=== PATIENT | female | born 1955 | race Caucasian/White ===

== ENCOUNTER 2017-10-08 12:45 | Emergency (ER) | payer OTHER ==
[~2017-10-08] VITALS: Ht 172.7 cm; Wt 90.7 kg
[~2017-10-08 12:45] MED LIST: CALCIUM 500 +1 EAC4 PO; CLONAZEPAM 0.50.5 M1 PO; ENTOCORT EC 3 MG3 MG PO; HYDROCODONE-AP1 EAC6 PO; LATUDA120 MG PO; LISINOPRIL10 MG PO; MAXZIDE 75-501 EACH PO; METHADONE HCL 110 M1 PO; NEURONTIN800 MG PO; NUEDEXTA 20-101 EACH PO
[2017-10-08] MEDS ORDERED: LYRICA 75 MG CA75 MG PO (12:55)
[2017-10-08 13:11] LABS: ABSOLUTE NEUTROPHILS 5.9 thou/uL (1.4-8.2); BASOPHILS 0.5 % (0.0-2.0); EOSINOPHILS 0.3 % (0.0-3.0); HEMATOCRIT 47.2 % (37.0-47.0); HEMOGLOBIN 15.6 gm/dL (12.0-15.0); LYMPHOCYTES 20.1 % (24.0-44.0); MCH 31.3 pg (26.0-34.0); MONOCYTES 6.6 % (1.0-8.0); PLATELET COUNT 321 thou/uL (150-400); POLYS 72.5 % (36.0-66.0); RBC 4.97 mil/uL (4.20-5.00); RDW 13.3 % (10.5-14.5); WBC 8.1 thou/uL (4.0-11.0)
[2017-10-08 13:24] LABS: ANION GAP 15 mmol/L (7-16); BUN 9 mg/dL (7-18); CALCIUM 10.2 mg/dL (8.5-10.1); CHLORIDE 105 mmol/L (98-107); CO2 22 mmol/L (21-32); GLUCOSE 151 mg/dL (74-106); POTASSIUM 3.9 mmol/L (3.5-5.1); SODIUM 142 mmol/L (136-145)
[2017-10-08 13:28] LABS: ALBUMIN 4.2 g/dL (3.4-5.0); DIRECT BILIRUBIN < 0.1 mg/dL (<0.1-0.3); SALICYLATE < 2.8 mg/dL (2.8-20.0); SGOT 24 U/L (15-37); SGPT 36 U/L (30-65); TOTAL BILIRUBIN 0.2 mg/dL (<0.1-1.0); TOTAL PROTEIN 8.1 g/dL (6.4-8.2)
[2017-10-08 15:26] LABS: AMP/METHAMP Negative (Negative); BARBITURATES Negative (Negative); BENZODIAZEPINES Negative (Negative); COCAINE Negative (Negative); METHADONE Negative (Negative); OPIATES Negative (Negative); PCP Negative (Negative)
[2017-10-08 19:30] VITALS: BP 142/71
== END 2017-10-08 19:48 ==
LOC: ER 12:45
PROVIDERS: Emergency Medicine
DX: R45.851 Suicidal ideations (principal); I10 Essential (primary) hypertension; F41.9 Anxiety disorder, unspecified; F31.9 Bipolar disorder, unspecified; Z88.1 Allergy status to other antibiotic agents; Z88.8 Allergy status to other drugs, medicaments and biological substances; Z88.6 Allergy status to analgesic agent

== ENCOUNTER 2018-03-12 18:57 | Inpatient (IN) | payer OTHER ==
[~2018-03-12] VITALS: Ht 165.1 cm; Wt 101.7 kg
--- NOTE | ~2018-03-12 | EEG ---
[facility] [address] [place] [address] ELECTROENCEPHALOGRAM Name: ARBEN COLLINS Room #: 247-P ADM IN M.R.#: [id number] Admission: 03/12/18 Attend Phys: Rudy Corea Discharge: Date of : 51 Report #: [id number] THIS REPORT FOR: //name// CC: FAM unknown Mitullos Dunncameron Jose Caponean DATE OF SERVICE: 03/14/2018 This patient is being evaluated for altered mental status and seizure. EEG was done by placing the electrode by standard 10-20 system of electrode placement. Both referential and sequential montages were used for recording. Background activity in this patient's EEG does go up to about 8 Hz and 30 microvolt. It is a symmetrical activity. It is difficult to tell when the patient is awake or when the patient is asleep. Photic stimulation is unremarkable. Throughout the record, no active epileptiform activity was noticed. IMPRESSION: This patient's EEG does not demonstrate any active epileptiform activity. It is somewhat intermixed with slowing on both sides. That is a nonspecific abnormality, which can occur with encephalopathy, effect of psychotropic medication, etc. <ELECTRONICALLY SIGNED> By: Ganga Lujan MD 03/17/18 0837 190 40 Ganga Lujan MD /nt
--- NOTE | ~2018-03-12 | EKG ---
[place] [address] [facility] [place] [address] ELECTROCARDIOGRAM REPORT Name: DENNISARBEN DAVID Room #: 363-P ADM IN M.R.#: [id number] Admission: 03/12/18 Attend Phys: Rudy Headley Discharge: Date of : 51 Report #: [id number] THIS REPORT FOR: //name// [facility] ED Test Date: 2018-03-12 Test Time: 19:15:55 Pat Name: ARBEN COLLINS Department: Room: 363 Gender: F Coffee Taster: mya : 1955 Requested By: Jenni Hager Order Number: [id number] MD: Ruy Stephens Measurements Intervals [place] Rate: 129 P: 59 [place]: 147 QRS: 58 QRSD: 97 T: 249 QT: 303 QTc: 444 Interpretive Statements Sinus tachycardia Nonspecific ST and T wave abnormality Compared to ECG 02/21/2016 16:09:49 ST and T wave abnormality is now present Electronically Signed On 03-13-2018 8:21:06 CDT by Ruy Stephens [email or web address] <ELECTRONICALLY SIGNED> By: Ruy Stephens MD, [facility] 03/13/18820 14 14 Ruy Stephens MD, [facility] /EPI
--- NOTE | ~2018-03-12 | O ---
[facility] [place] [address] OPERATIVE REPORT Name: ARBEN COLLINS Room #: 222-P [facility] IN M.R.#: [id number] Admission: 03/12/18 Attend Phys: Rudy Headley Discharge: Date of : 51 Report #: [id number] THIS REPORT FOR: //name// CC: FAM unknown Rudy Lovett DATE OF SERVICE: 03/24/2018 SURGEON: Chetan Kendall MD. POWER PLANT MANAGER: JAY Clinton. PREOPERATIVE DIAGNOSES: 1. Symptomatic right anteromedial thigh hematoma. 2. Seizure disorder. 3. Chronic pain syndrome. 4. Bipolar mood disorder. 5. Type 2 diabetes mellitus. 6. Hypertension. POSTOPERATIVE DIAGNOSES: 1. Symptomatic right anteromedial thigh hematoma. 2. Seizure disorder. 3. Chronic pain syndrome. 4. Bipolar mood disorder. 5. Type 2 diabetes mellitus. 6. Hypertension. PROCEDURE: Incision, drainage and evacuation of right anteromedial thigh hematoma. ANESTHESIA: General laryngeal mask anesthesia and local anesthetic. ESTIMATED BLOOD LOSS: 5 mL (200 mL of hematoma evacuated). SPECIMEN: None. COMPLICATIONS: None appreciated. INDICATIONS FOR PROCEDURE: This is a 63-year-old female patient with a history of seizure disorder, who developed a right anterior medial thigh hematoma that she sustained while undergoing a seizure. She has been symptomatic with this and underwent a Doppler showing this to be a 7 x 7 x 2 cm hematoma. The patient presents now for incision, drainage, and evacuation of the hematoma. [facility] [place] [address] OPERATIVE REPORT Name: ARBEN COLLINS Room #: 222-P ADM IN M.R.#: [id number] Admission: 03/12/18 Attend Phys: Rudy Headley Discharge: Date of : 51 Report #: [id number] DESCRIPTION OF PROCEDURE IN DETAIL: After the risks, benefits and expectations of the operation were discussed in detail with the patient, informed consent was obtained. The patient was identified in the preoperative holding area. She was given IV antibiotics as documented in the chart in line with SCIP metrics. The patient was then taken to the Operating Room and she was placed in the supine position. SCDs were placed on the patient's right lower extremity and pneumatic compression was initiated (the patient has undergone a left ogueu-gkb-qfyj amputation). The patient was then given IV sedation and a laryngeal mask was placed without difficulty. Her right leg was prepped and draped in the standard sterile fashion. A time-out was performed to identify the correct patient and procedure. Local anesthetic was infiltrated into the skin and subcutaneous tissue and the planned incision following the skin lines. A sharp #15-blade scalpel was used to make the incision. Electrocautery was used to dissect through subcutaneous tissue into the hematoma. The hematoma was then suctioned from the cavity. Blunt digital dissection was then utilized to free any remaining hematoma within the tissue. There was no active hemorrhage seen and no need for cauterization. The hematoma cavity was copiously irrigated. Any bleeding points in the subcutaneous tissue were made hemostatic with electrocautery. After ensuring final hemostasis, the wound was closed in layers with a running 3-0 Vicryl suture to approximate the subdermal tissue. A running 4-0 Monocryl subcuticular suture and Dermabond were used to close the skin incision. After the Dermabond dried, an ABD pad and Frandy wrap were used to dress the wound. The patient tolerated the procedure well. She was awakened and the laryngeal mask was removed without difficulty and the patient was taken to the recovery room in stable condition with no apparent intraoperative complications. <ELECTRONICALLY SIGNED> By: Chetan Kendall MD, FACS 03/24/18 1331 0819 1032 Chetan Kendall MD, FACS /nt
--- NOTE | ~2018-03-12 | EEG ---
[facility] [place] [address] ELECTROENCEPHALOGRAM Name: ARBEN COLLINS Room #: 247-P ADM IN M.R.#: [id number] Admission: 03/12/18 Attend Phys: Rudy Corea Discharge: Date of : 51 Report #: [id number] THIS REPORT FOR: //name// CC: FAM unknown Rudy Dunnlidara Jose Lovett DATE OF SERVICE: 03/13/2018 This patient is being evaluated for altered mental status as well as the possibility of seizure. The patient is on multiple medications including Ativan. The EEG was done by placing the electrodes by standard 10-20 system of electrode placement. Both referential and sequential montages were used for recording. This patient's background activity appeared to be about 8 Hz and 30 microvolt. In general, it is slow activity and it is intermixed with theta range slowing on both sides. On occasion, the EEG becomes even slower and appeared to be showing some sleep spindles and vertex sharp waves on both sides, which were symmetrical. Photic stimulation is unremarkable. The patient appeared to have had an episode of spike and slow wave activity. The EEG was discussed with the predictive maintenance technician and it does not look like that this patient had any movement during that time. The epileptiform activity is somewhat more prominent on the left side as compared to the right side, but is present on both sides. It does not appear to be focal and involving the whole left cerebral hemisphere and in fact appeared to be less prominent in the left frontal area, making the possibility of triphasic waves unlikely. IMPRESSION: This is an abnormal electroencephalogram because it is disorganized and poorly formed. That is a nonspecific abnormality, which can occur with encephalopathy, effect of psychotropic medication, dementia, etc. The patient's electroencephalogram does appear to be demonstrating an episode of seizure activity, which is somewhat more prominent on the left cerebral hemisphere than the right cerebral hemisphere, but is well reflected on both sides and the difference between both sides is minor. Thank you very much for this referral and if you have any question, please feel free to contact me. <ELECTRONICALLY SIGNED> By: Ganga Lujan MD 03/17/18 0837 1201 1211 Ganga Lujan MD /nt
--- NOTE | ~2018-03-12 | HC ---
[facility] [place] [address] CONSULTATION Name: ARBEN COLLINS Room #: 247-P ADM IN M.R.#: [id number] Admission: 03/12/18 Attend Phys: Rudy Headley Discharge: Date of : 51 Report #: [id number] THIS REPORT FOR: //name// CC: FAM unknown Mitullos Kayode Lovett ADDENDUM PAST MEDICAL HISTORY: Left vnxpm-epf-qwfz amputation, hypertension and anxiety disorder with bipolar disorder. ALLERGIES: CEFAZOLIN, CLINDAMYCIN, LITHIUM, MORPHINE, SERZONE, NONSTEROIDAL ANTI-INFLAMMATORIES, PROCHLORPERAZINE, SEROQUEL, ULTRAM, TRAZODONE and VANCOMYCIN. MEDICATIONS: Prior to admission included vitamin D and calcium, Entocort, Zestril, dextromethorphan and quinidine. FAMILY HISTORY: Not available. SOCIAL HISTORY: Nonsmoker. No significant alcohol intake. PHYSICAL EXAMINATION: VITAL SIGNS: Afebrile and hemodynamically stable. GENERAL: The patient was lethargic, but once stimulated, arouse and was able to converse and follow commands. She was confused and can give me no history. She did not know where she was at. She did know her name. She had slurred speech. HEENT: Unremarkable. Mouth unremarkable. Dentition in fair repair. No oral lesions. Eyes unremarkable. NECK: Supple. No thyromegaly or mass. No JVD. CHEST: Clear with no adventitial sounds. HEART: Regular, without murmur, gallop or rub. ABDOMEN: Soft and nontender. No hepatosplenomegaly or mass. She had a left AKA stump, was unremarkable. EXTREMITIES: Right lower extremity showed a fairly large to her medial thigh. She had a peripheral IV in place. GENITOURINARY: She had an indwelling Bansal catheter with unremarkable external genitalia. NEUROLOGICAL: Otherwise, nonfocal with normal cranial nerves. Strength was equal bilaterally upper and lower extremities. Deep tendon reflexes intact. LABORATORY STUDIES: Sodium 144, potassium 4.1 and creatinine 1. Liver function test normal. Hemoglobin 15.7; platelet count 316,000 and white count initially 17.8 and now 11.1 with unremarkable differential. Urinalysis unremarkable. RADIOLOGICAL DATA: CT of the head negative. CT of sinuses on that film are [address] [address] CONSULTATION Name: ARBEN COLLINS Room #: 247-P ADM IN M.R.#: [id number] Admission: 03/12/18 Attend Phys: Rudy Headley Discharge: Date of : 51 Report #: [id number] unremarkable. Chest x-ray showed cardiomegaly with no acute pulmonary infiltrates. ET as noted above. IMPRESSION: Acute change in mental status with seizure. Still unclear if this is related to her primary seizure disorder for ischemia. CT scan was unremarkable in that regard. She had leukocytosis, which often is evident after a grand mal seizure. It has improved along with her mental status without antibiotic therapy. I am finding no other area of end-organ infection. She did not appear to have meningitis. I would expect encephalitis to progress and not improve following the seizure episode. The patient has hypertension, which was elevated, now controlled. Anxiety and bipolar disorder. RECOMMENDATIONS: We will continue to observe off antibiotics. Obtain MRI scan. If she should have further deterioration in her mental status or evidence of fever, we would perform a lumbar puncture. We would also do serial CBCs. She will require further monitoring on the medical surgical floor, critical care, telemetry. <ELECTRONICALLY SIGNED> By: Yony Mayberry MD 03/17/18 1102 1723 0105 Yony Mayberry MD /nt
--- NOTE | ~2018-03-12 | EKG ---
[address] [place] [address] ELECTROCARDIOGRAM REPORT Name: ARBEN COLLINS Room #: 247-P ADM IN M.R.#: [id number] Admission: 03/12/18 Attend Phys: Rudy Headley Discharge: Date of : 51 Report #: [id number] THIS REPORT FOR: //name// [facility] Test Date: 2018-03-15 Test Time: 11:13:57 Pat Name: ARBEN COLLINS Department: Room: 247 P Gender: F Feather Shaper: SRINATH : 1955 Requested By: Rudy Headley Order Number: [id number] MD: Riley Bruno Measurements Intervals [place] Rate: 99 P: 56 SD: 138 QRS: 53 QRSD: 94 T: -32 QT: 378 QTc: 486 Interpretive Statements Sinus tachycardia Multiple premature complexes, vent & supraven Nonspecific ST segment abnormalities Compared to ECG 03/12/2018 19:15:55 T-wave abnormality now present ST (T wave) deviation no longer present Electronically Signed On 03-16-2018 11:01:22 CDT by Riley Bruno [email or web address] <ELECTRONICALLY SIGNED> By: Riley Bruno MD 03/16/18 1101 1113 1113 Riley Bruno MD /EPI
--- NOTE | ~2018-03-12 | HC ---
[facility] [place] [address] CONSULTATION Name: ARBEN COLLINS Room #: 247-P ADM IN M.R.#: [id number] Admission: 03/12/18 Attend Phys: Rudy Headley Discharge: Date of : 51 Report #: [id number] THIS REPORT FOR: //name// CC: FAM unknown Rudy Headley Jose Lovett DATE OF SERVICE: 03/14/2018 TYPE OF REPORT: Infectious diseases consultation. REASON FOR CONSULTATION: Evaluate leukocytosis and altered mental status. HISTORY OF PRESENT ILLNESS: The patient was a 63-year old who presents to the Emergency Room with a 1-hour history of altered mental status. She was with her family members and stopped speaking and noticed bizarre behavior with the patient with sit up and fall back repeatedly. EMS was called and brought to the Emergency Room where she suffered a seizure that was witnessed including tremors and incontinence. No predating fever, chills or sweats. No episodes of nausea, vomiting or diarrhea. She has had no rash. No prior history of seizure. Reports no prior trauma. She does have bipolar disorder with no recent change in her medications noted. She was evaluated in the Emergency Room and admitted to the med/surg floor for further observation. She was seen by Neurology who placed her on anti-seizure medication. CT scan of the head showed no intracranial process. EEG did show some background seizure activity. Her initial CBC showed a white count of 17.8. On repeat testing, it went down to 11.1. She has been on no recent antibiotics. REVIEW OF SYSTEMS: The patient was a poor historian, unable to give me much detail of her history. She was still lethargic and confused. A 10-point review of systems was not able to be obtained due to her mental status. DICTATION ENDS ABRUPTLY HERE. <ELECTRONICALLY SIGNED> By: Yony Mayberry MD 03/17/18 1102 1712 0009 Yony Mayberry MD /nt
[~2018-03-12 18:57] MED LIST changes: +LYRICA 75 MG CA75 MG PO
[2018-03-12 19:16] LABS: BASOPHILS 0.4 % (0.0-2.0); EOSINOPHILS 0.4 % (0.0-3.0); HEMATOCRIT 54.7 % (37.0-47.0); HEMOGLOBIN 17.5 gm/dL (12.0-15.0); LYMPHOCYTES 25.8 % (24.0-44.0); MCH 30.6 pg (26.0-34.0); MCV 95.9 fL (80.0-100.0); MONOCYTES 5.8 % (1.0-8.0); PLATELET COUNT 375 thou/uL (150-400); POLYS 67.6 % (36.0-66.0); RBC 5.71 mil/uL (4.20-5.00); RDW 13.9 % (10.5-14.5); WBC 17.8 thou/uL (4.0-11.0)
[2018-03-12 19:25] LABS: ANION GAP 26 mmol/L (7-16); BUN 17 mg/dL (7-18); CALCIUM 10.9 mg/dL (8.5-10.1); CHLORIDE 101 mmol/L (98-107); CO2 16 mmol/L (21-32); CREATININE 1.4 mg/dL (0.6-1.0); GLUCOSE 201 mg/dL (74-106); POTASSIUM 3.4 mmol/L (3.5-5.1); SODIUM 143 mmol/L (136-145)
[2018-03-12 19:33] LABS: ALBUMIN 4.6 g/dL (3.4-5.0); DIRECT BILIRUBIN < 0.1 mg/dL (<0.1-0.3); SGOT 30 U/L (15-37); SGPT 41 U/L (30-65); TOTAL BILIRUBIN 0.3 mg/dL (<0.1-1.0); TOTAL PROTEIN 9.3 g/dL (6.4-8.2)
[2018-03-12 20:07] LABS: URINE BILIRUBIN NEGATIVE (Negative); URINE BLOOD 2+ (Negative); URINE CLARITY CLEAR; URINE COLOR YELLOW; URINE GLUCOSE-RANDOM* NEGATIVE (Negative); URINE KETONES TRACE (Negative); URINE LEUKOCYTES NEGATIVE (Negative); URINE NITRITE NEGATIVE (Negative); URINE PROTEIN (DIPSTICK) 2+ (Negative); URINE SPECIFIC GRAVITY >= 1.030 (1.005-1.035); URINE UROBILINOGEN 0.2 E.U./dl (0.2-1.0)
[2018-03-12 20:14] LABS: AMORPHOUS URATES Few /LPF (None Seen); BACTERIA None Seen /HPF (None Seen); HYALINE CASTS 0-3 Few /LPF (None Seen); SQUAMOUS 0-3 Few /LPF (0-3); URINE RBC 0-2 Rare /HPF (0-2); URINE WBC 0-5 Rare /HPF (0-5)
[2018-03-12 20:15] LABS: AMP/METHAMP Negative (Negative); BARBITURATES Negative (Negative); BENZODIAZEPINES Negative (Negative); COCAINE Negative (Negative); METHADONE Negative (Negative); OPIATES POSITIVE (Negative); PCP Negative (Negative)
[2018-03-12 20:51] VITALS: BP 186/97
[2018-03-12 21:06] VITALS: BP 159/99
[2018-03-12] MEDS ORDERED: ONDANSETRON HCL4 M2 PO (23:14)
[2018-03-12] MEDS ORDERED: SEROQUEL 25 MG25 M1 PO (23:14)
[2018-03-12] MEDS ORDERED: BUPRENORPHINE HC2 MG SUBLING (23:28)
[2018-03-13] VITALS (8 sets, daily range): BP systolic 133–192; BP diastolic 66–119
[2018-03-13 06:33] LABS: ABSOLUTE NEUTROPHILS 8.4 thou/uL (1.4-8.2); BASOPHILS 0.1 % (0.0-2.0); EOSINOPHILS 0.1 % (0.0-3.0); HEMATOCRIT 47.8 % (37.0-47.0); HEMOGLOBIN 15.7 gm/dL (12.0-15.0); LYMPHOCYTES 15.3 % (24.0-44.0); MCH 29.9 pg (26.0-34.0); MCHC 32.9 g/dL (28.0-37.0); MONOCYTES 8.3 % (1.0-8.0); PLATELET COUNT 316 thou/uL (150-400); POLYS 76.2 % (36.0-66.0); RBC 5.26 mil/uL (4.20-5.00); RDW 13.5 % (10.5-14.5); WBC 11.1 thou/uL (4.0-11.0)
[2018-03-13 06:34] LABS: MCV 90.9 fL (80.0-100.0)
[2018-03-13 06:39] LABS: MAGNESIUM 2.5 mg/dL (1.8-2.4); POTASSIUM 3.7 mmol/L (3.5-5.1)
[2018-03-14] VITALS (21 sets, daily range): BP systolic 100–188; BP diastolic 59–93
[2018-03-14 00:06] LABS: GLYCOHEMOGLOBIN (HGB A1C) 5.6 % (4.8-5.6)
[2018-03-14 06:28] LABS: ALBUMIN 3.5 g/dL (3.4-5.0); CALCIUM 8.6 mg/dL (8.5-10.1); PHOSPHORUS 3.3 mg/dL (2.5-4.9); POTASSIUM 4.1 mmol/L (3.5-5.1)
[2018-03-15] VITALS (27 sets, daily range): BP systolic 102–217; BP diastolic 48–166
[2018-03-15 04:56] LABS: ABSOLUTE NEUTROPHILS 3.7 thou/uL (1.4-8.2); BASOPHILS 0.7 % (0.0-2.0); EOSINOPHILS 1.8 % (0.0-3.0); HEMATOCRIT 40.2 % (37.0-47.0); MCH 30.2 pg (26.0-34.0); MCV 91.4 fL (80.0-100.0); MONOCYTES 9.7 % (1.0-8.0); POLYS 51.8 % (36.0-66.0); RBC 4.39 mil/uL (4.20-5.00); WBC 7.1 thou/uL (4.0-11.0)
[2018-03-15 05:04] LABS: HEMOGLOBIN 13.3 gm/dL (12.0-15.0); PLATELET COUNT 234 thou/uL (150-400)
[2018-03-16] VITALS (12 sets, daily range): BP systolic 113–165; BP diastolic 53–98
[2018-03-17 08:00] VITALS: BP 129/72
[2018-03-17 12:00] VITALS: BP 128/68
[2018-03-17 16:00] VITALS: BP 150/90
[2018-03-17 18:00] VITALS: BP 181/79
[2018-03-18 03:06] VITALS: BP 118/53
[2018-03-18 07:55] VITALS: BP 133/59
[2018-03-18 15:38] VITALS: BP 153/64
[2018-03-18 19:23] VITALS: BP 151/58
[2018-03-19 03:53] VITALS: BP 155/75
[2018-03-19 08:24] VITALS: BP 121/58
[2018-03-19 16:52] VITALS: BP 134/61
[2018-03-20 05:22] VITALS: BP 129/62
[2018-03-20 07:37] VITALS: BP 138/61
[2018-03-20] MEDS ORDERED: AUGMENTIN 875-1 EACH PO (15:45)
[2018-03-20 19:58] VITALS: BP 123/73
[2018-03-21 00:35] VITALS: BP 97/76
[2018-03-21 07:55] VITALS: BP 120/64
[2018-03-21 14:54] LABS: PROTIME 10.5 Seconds (9.3-11.4)
[2018-03-21 20:02] VITALS: BP 151/80
[2018-03-22 08:05] VITALS: BP 141/73
[2018-03-22 20:21] VITALS: BP 139/63
[2018-03-23 06:09] VITALS: BP 116/63
[2018-03-23 07:53] VITALS: BP 109/55
[2018-03-23 20:01] VITALS: BP 122/61
[2018-03-24 07:11] VITALS: BP 142/53
[2018-03-24 09:15] VITALS: BP 153/88
[2018-03-24] MEDS ORDERED: NORCO 10-325 T1 EACH PO (10:31)
[2018-03-24] MEDS ORDERED: PROTONIX 20 MG20 M1 PO (10:31)
[2018-03-24] MEDS ORDERED: LISINOPRIL20 MG PO (10:31)
[2018-03-24] MEDS ORDERED: CARDIZEM CD240 MG PO (10:31)
[2018-03-24] MEDS ORDERED: DEPAKOTE500 MG PO (10:31)
[2018-03-24 22:11] VITALS: BP 164/70
[2018-03-25 07:25] VITALS: BP 142/61
[2018-03-25 07:30] LABS: HEMATOCRIT 38.5 % (37.0-47.0); HEMOGLOBIN 12.7 gm/dL (12.0-15.0); MCH 30.3 pg (26.0-34.0); MCV 92.1 fL (80.0-100.0); RBC 4.18 mil/uL (4.20-5.00); RDW 13.8 % (10.5-14.5); WBC 7.3 thou/uL (4.0-11.0)
[2018-03-25 07:45] LABS: ALBUMIN 3.2 g/dL (3.4-5.0); CALCIUM 8.7 mg/dL (8.5-10.1); CREATININE 0.8 mg/dL (0.6-1.0); MAGNESIUM 2.1 mg/dL (1.8-2.4); POTASSIUM 3.8 mmol/L (3.5-5.1); TOTAL BILIRUBIN 0.2 mg/dL (<0.1-1.0); TOTAL PROTEIN 6.6 g/dL (6.4-8.2)
== END 2018-03-25 18:00 | DRG 987 ==
LOC: ER 18:57 → 3W 20:04 → EROBS 20:04 → SICU 20:04 → 3W 20:56 → ICU 03-14 18:25 → 4W 03-17 18:29 → SICU 03-19 16:13
PROVIDERS: Emergency Medicine; Hospitalist; Nurse Practitioner; Nurse Practitioner Family; Specialist; Surgery
PROC: 0J9L0ZZ Drainage of Right Upper Leg Subcutaneous Tissue and Fascia, Open Approach (ICD-10-PCS; principal; 2018-03-24)
DX: G40.909 Epilepsy, unspecified, not intractable, without status epilepticus (principal); J18.9 Pneumonia, unspecified organism; N17.0 Acute kidney failure with tubular necrosis; I67.83 Posterior reversible encephalopathy syndrome; N17.1 Acute kidney failure with acute cortical necrosis; E87.2 Acidosis; R45.851 Suicidal ideations; F11.20 Opioid dependence, uncomplicated; D32.9 Benign neoplasm of meninges, unspecified; E87.6 Hypokalemia; D72.829 Elevated white blood cell count, unspecified; I16.0 Hypertensive urgency; R53.81 Other malaise; G47.00 Insomnia, unspecified; R29.6 Repeated falls; E55.9 Vitamin D deficiency, unspecified; F41.9 Anxiety disorder, unspecified; F31.9 Bipolar disorder, unspecified; G89.4 Chronic pain syndrome; I10 Essential (primary) hypertension; E11.65 Type 2 diabetes mellitus with hyperglycemia; W18.39XA Other fall on same level, initial encounter; Z96.653 Presence of artificial knee joint, bilateral; Z88.6 Allergy status to analgesic agent; Z88.1 Allergy status to other antibiotic agents; Z88.8 Allergy status to other drugs, medicaments and biological substances; Z89.612 Acquired absence of left leg above knee; Z85.118 Personal history of other malignant neoplasm of bronchus and lung; Y93.89 Activity, other specified; Y92.89 Other specified places as the place of occurrence of the external cause; Y99.8 Other external cause status; S70.11XA Contusion of right thigh, initial encounter
CPT/HCPCS: 10047; 10078; 10879; 15002; 50010; 50101; 50386; 50403; 56524; 56526; 62110; 62900; 70005

== ENCOUNTER 2018-12-29 19:30 | Inpatient (IN) | payer OTHER ==
[~2018-12-29] VITALS: Ht 172.7 cm; Wt 91.6 kg
[~2018-12-29 19:30] MED LIST changes: +AUGMENTIN 875-1 EACH PO; +BUPRENORPHINE HC2 MG SUBLING; +CARDIZEM CD240 MG PO; +DEPAKOTE500 MG PO; +LISINOPRIL20 MG PO; +NORCO 10-325 T1 EACH PO; +ONDANSETRON HCL4 M2 PO; +PROTONIX 20 MG20 M1 PO; +SEROQUEL 25 MG25 M1 PO
[2018-12-29 19:31] VITALS: BP 150/75
[2018-12-29 20:01] LABS: URINE BILIRUBIN NEGATIVE (Negative); URINE BLOOD NEGATIVE (Negative); URINE CLARITY CLEAR; URINE COLOR YELLOW; URINE GLUCOSE-RANDOM* NEGATIVE (Negative); URINE KETONES TRACE (Negative); URINE LEUKOCYTES-REFLEX NEGATIVE (Negative); URINE NITRITE-REFLEX NEGATIVE (Negative); URINE PROTEIN (DIPSTICK) TRACE (Negative); URINE SPECIFIC GRAVITY >= 1.030 (1.005-1.035); URINE UROBILINOGEN 0.2 E.U./dl (0.2-1.0)
[2018-12-29 20:04] LABS: HEMATOCRIT 44.5 % (37.0-47.0); MCH 32.3 pg (26.0-34.0); MCHC 33.6 g/dL (28.0-37.0); PLATELET COUNT 291 thou/uL (150-400); RBC 4.64 mil/uL (4.20-5.00); RDW 12.8 % (10.5-14.5); WBC 5.2 thou/uL (4.0-11.0)
[2018-12-29 20:10] LABS: CALCIUM 8.7 mg/dL (8.5-10.1); CREATININE 0.9 mg/dL (0.6-1.0); POTASSIUM 3.6 mmol/L (3.5-5.1)
[2018-12-29 20:29] LABS: ANISOCYTOSIS 1+
[2018-12-30] MEDS ORDERED: ZIPRASIDONE HCL40 MG PO (01:36)
[2018-12-30] MEDS ORDERED: NEURONTIN 300300 M1 PO (01:36)
[2018-12-30] MEDS ORDERED: VISTARIL 25 MG25 M1 PO (01:37)
[2018-12-30] MEDS ORDERED: MELATONIN3 MG PO (01:38)
[2018-12-30] MEDS ORDERED: FIBRICOR35 MG PO (01:40)
[2018-12-30] MEDS ORDERED: REGLAN 5 MG TAB5 MG PO (01:41)
[2018-12-30] MEDS ORDERED: ACIDOPHILUS LA1 EAC1 PO (01:42)
[2018-12-30] MEDS ORDERED: DIGESTIVE PROB250 MG PO (01:43)
[2018-12-30 02:17] VITALS: BP 145/74
[2018-12-30 02:45] VITALS: BP 192/88
[2018-12-30 02:56] LABS: AMP/METHAMP Negative (Negative); BARBITURATES Negative (Negative); BENZODIAZEPINES POSITIVE (Negative); COCAINE Negative (Negative); METHADONE Negative (Negative); OPIATES Negative (Negative); PCP Negative (Negative)
[2018-12-30 04:10] VITALS: BP 152/75
--- NOTE | 2018-12-30 05:35 | NUR ---
PT ARRIVED TO UNIT APPROX 0300, IN STABLE CONDITION. ADMISSION AND ASSESSMENT COMPLETED. PT ABLE TO STATE HER FIRST NAME, BIRTHDAY, KNEW SHE WAS IN THE HOSPITAL BUT UNSURE OF WHERE; ALL OTHER QUESTIONS SHE JUST ANSWERED "I DON'T KNOW." WHEN ASKED SINGLE QUESTIONS, SHE COULD SOMETIMES ANSWER APPROPRIATELY--SUCH WHAT PAIN MED SHE TOOK AND LATER WAS ABLE TO GIVE THE NAME OF THE HOSPITAL; OTHERWISE, SHE WOULD JUST SAY I DON'T KNOW AND REFUSE TO TRY TO ANSWER. IN ISOLATION FOR C.DIFF, ER SENT SAMPLE TO CONFIRM; ALSO IN ISOLATION FOR POSSIBLE MENINGITIS. PT TO HAVE ABD CT TODAY AND IR CONSULTED FOR AN IR-GUIDED LP. SKIN IN GOOD CONDITION. PT C/O SEVERE HEADACHE. DENIES SOB OR NAUSEA. MAINTAINING NPO STATUS. IV FLUIDS INFUSING. NO OTHER CONCERNS, WILL CONTINUE TO MONITOR.
--- NOTE | 2018-12-30 08:00 | EKG ---
[address] [address] ELECTROCARDIOGRAM REPORT Name: ARBEN COLLINS Room #: 418-P ADM IN .R.#: [id number] ������������������ Admission: 12/29/18 ������������������ Attend Phys: Melo Lawrence MD Discharge: ������������������ Date of : 51 Report #: [id number] ����������������������������������������������������������������� [id number] THIS REPORT FOR: //name// [facility] ED Test Date: 2018-12-29 Test Time: 19:53:56 Pat Name: ARBEN COLLINS Department: Room: [facility] Gender: F Shipping And Receiving Weigher: TRACIE : 1955 Requested By: Monica Alejandre Order Number: [id number] MD: Henrry Garcia Measurements Intervals [place] Rate: 97 P: 23 AK: 156 QRS: 56 QRSD: 88 T: 44 QT: 366 QTc: 465 Interpretive Statements Sinus rhythm Compared to ECG 03/15/2018 11:13:57 Sinus tachycardia no longer present Electronically Signed On 12-30-2018 8:00:31 CDT by Henrry Garcia [email or web address] ��������������������������������������������� <ELECTRONICALLY SIGNED> ���������������������������������������� By: Henrry Garcia MD ��������������������������������������������� 12/30/18799 52 52 Henrry Garcia MD /DINAH
[2018-12-30 08:22] LABS: PROTIME 10.8 Seconds (9.3-11.4)
[2018-12-30 08:31] VITALS: BP 165/77
[2018-12-30 09:37] LABS: ABSOLUTE NEUTROPHILS 2.2 thou/uL (1.4-8.2); EOSINOPHILS 0.1 % (0.0-3.0); HEMATOCRIT 45.9 % (37.0-47.0); HEMOGLOBIN 14.8 gm/dL (12.0-15.0); LYMPHOCYTES 23.8 % (24.0-44.0); MCH 31.1 pg (26.0-34.0); MCHC 32.3 g/dL (28.0-37.0); MCV 96.4 fL (80.0-100.0); MONOCYTES 3.1 % (1.0-8.0); PLATELET COUNT 226 thou/uL (150-400); RBC 4.76 mil/uL (4.20-5.00); RDW 12.7 % (10.5-14.5); WBC 3.1 thou/uL (4.0-11.0)
--- NOTE | 2018-12-30 10:10 | NUR ---
PATIENT AT THIS TIME LEFT UNIT TO HAVE CT OF ABD AND THEN WILL HAVE LUMBAR PUNTURE/ SPINAL TAP. PATIENT IS ALERT XS 1 TO SELF. SPOKE WITH PATIENT'S DAUGHTER AND GRANDDAUGHTER.
[2018-12-30 11:27] LABS: CSF GLUCOSE 91 mg/dL (40-70); CSF PROTEIN 53 mg/dL (15-45)
--- NOTE | 2018-12-30 12:10 | NUR ---
CIVIL ENGINEER'S AIDE activated-see flowsheet
[2018-12-30 12:22] LABS: CSF CLARITY CLEAR; CSF COLOR COLORLESS; CSF RBC 2 /mm3; CSF WBC 1 /mm3 (0-10); VOLUME 5.5 ml
--- NOTE | 2018-12-30 14:04 | NUR ---
INITIAL ASSESSMENT: Pt evaluated for d/c planning needs. Reviewed chart and spoke with nurse and pt's granddaughter Jane. Pt lives with granddaughter. Pt has history of left AKA. Pt uses w/c at home and is able to transfer herself. Granddaughter does housework, cooking and laundry. Pt does not wear prosthesis. Pt has not had home health in the past, but granddaughter would like to have home health services on d/c. Will remain available to assist as needed and make necessary referrals for d/c.
[2018-12-30 15:14] VITALS: BP 165/83
[2018-12-30 19:17] VITALS: BP 148/64
--- NOTE | 2018-12-30 19:38 | NUR ---
PT IS RESTING IN BED AT THIS TIME. HAD LOOSE STOOL HAD COMPLETE BED AND GOWN CHANGE. HAD SPINAL TAP AND CT OF ABD EARLIER. RAPID RESPONSE CALLED EARLIER AT 1125 HAD JUST CAME BACK FROM SPINAL TAP BEING DONE STARTED SCREAMING AND TRYING TO GET OUT OF BED. NEW ORDERS IN CHART FOR FENTANYL AND ZYPREXIA XS 1 THAT WAS GIVEN. VS CHARTED MED GIVEN FOR INCREASED B/P. CONT ON IV ABT'S.
--- NOTE | 2018-12-31 02:39 | NUR ---
ASSUMED CARE AT 1900, ASSESSMENT COMPLETED. PT AWAKE AND ALERT, ANSWERS "I DON'T KNOW" OR "I CAN'T THINK" TO ALL ORIENTATION QUESTIONS; WILL SOMETIMES ANSWER WHEN ASKED ABOUT PAIN IN HER HEAD OR ABD. SOMETIMES SHE VOICES COMPLETE THOUGHTS, BUT OTHER TIMES SHE WILL MIX HER WORDS UP AND HAS WORD SALAD THAT MAKES LITTLE SENSE. PT WAS INCONT OF BOWEL AND BLADDER THREE TIMES BEFORE 2100, REQUIRING TOTAL LINEN CHANGES. EDUCATED PT THAT IF SHE NEEDS TO VOID OR THINKS SHE WILL HAVE A BM, THAT SHE SHOULD USE THE CALL LIGHT; PT THEN BEGAN PRESSING THE LIGHT REPEATEDLY ASKING FOR HELP TO URINATE, HAVE A BM, OR COUGH; REQUIRED FREQ REORIENTATION OF APPROPRIATELY ASKING FOR HELP. PT STARTED HAVING A POWERFUL DRY COUGH, THAT WOULD LARGELY STOP SOON STAFF ENTERED THE ROOM AND STARTED BACK UP AFTER STAFF LEFT. AT ONE POINT, ASKED PT WHAT WAS WRONG, AND SHE STATED SHE WAS "THROWING UP" BUT WHEN GIVEN A EMESIS BASIN, SHE STUCK IT UNDER HER LIKE A BEDPAN; ASKED PT TO CLARIFY IF SHE NEEDED TO THROW UP HAVE A BM, AND SHE SAID BM; PT THEN PULLED THE BASIN OUT AND SHE HAD ACTUALLY URINATED IN IT. PT AT VARIOUS TIMES C/O HER EYE'S ITCHING, HAVING ALERGIES, AND HER SKIN ON HER CHEST WAS VERY RED AND ITCHY LOOKING. OBTAINED ORDER TO RESTART PT'S GABAPENTIN AND MELATONIN, AND A ONE TIME DOSE OF HYDROXYZINE, WHICH SHE TAKES AT HOME ALSO, TO HELP PT SLEEP. SHE ALSO C/O HEADACHE, AND NEW THIS EVENING THAT HER RIGHT FOOT HURTS, NO SIGN OF BRUISING, REDNESS, OR SWELLING. AFTER GIVING THESE MEDS, PT FELL ASLEEP. TOLERATED MEDS WITH WATER, OTHERWISE HAVE NOT GIVEN ANY FOOD OR DRINK TO THE PT. WILL CONTINUE TO MONITOR.
[2018-12-31 04:29] VITALS: BP 146/79
[2018-12-31 05:34] LABS: HEMATOCRIT 43.4 % (37.0-47.0); HEMOGLOBIN 14.4 gm/dL (12.0-15.0); MCH 31.5 pg (26.0-34.0); MCHC 33.2 g/dL (28.0-37.0); MCV 94.9 fL (80.0-100.0); RBC 4.57 mil/uL (4.20-5.00); RDW 12.9 % (10.5-14.5); WBC 9.8 thou/uL (4.0-11.0)
[2018-12-31 05:39] LABS: CALCIUM 8.9 mg/dL (8.5-10.1); CREATININE 0.9 mg/dL (0.6-1.0); MAGNESIUM 1.9 mg/dL (1.8-2.4)
[2018-12-31 05:52] LABS: POTASSIUM 2.4 mmol/L (3.5-5.1)
[2018-12-31 09:26] VITALS: BP 129/46
--- NOTE | 2018-12-31 09:33 | EKG ---
[address] [address] ELECTROCARDIOGRAM REPORT Name: ARBEN COLLINSN Room #: 418-P ADM IN M.R.#: [id number] ������������������ Admission: 12/29/18 ������������������ Attend Phys: Melo Lawrence MD Discharge: ������������������ Date of : 51 Report #: [id number] ����������������������������������������������������������������� [id number] THIS REPORT FOR: //name// [facility] Test Date: 2018-12-30 Test Time: 11:53:39 Pat Name: ARBEN COLLINS Department: Room: [facility] Gender: F Customer Service Analyst: Will ROBERTS : 1955 Requested By: Melo Lawrence Order Number: [id number] MD: Riley Bruno Measurements Intervals [place] Rate: 97 P: 65 [place]: 169 QRS: 50 QRSD: 80 T: 39 QT: 373 QTc: 474 Interpretive Statements Sinus rhythm Atrial premature complex Probable left atrial enlargement Nonspecific ST segment abnormalities Compared to ECG 12/29/2018 19:53:56 Atrial premature complex(es) now present ST (T wave) deviation now present Electronically Signed On 12-31-2018 9:33:01 CDT by Riley Bruno [email or web address] ��������������������������������������������� <ELECTRONICALLY SIGNED> ���������������������������������������� By: Riley Bruno MD ��������������������������������������������� 12/31/18 0933 1153 1153 Riley Bruno MD /EPI
[2018-12-31 12:46] LABS: CALCIUM 8.5 mg/dL (8.5-10.1); MAGNESIUM 1.8 mg/dL (1.8-2.4)
[2018-12-31 12:52] LABS: POTASSIUM 2.7 mmol/L (3.5-5.1)
[2018-12-31] MEDS ORDERED: AWAKE200 MG PO (14:20)
[2018-12-31] MEDS ORDERED: XANAX 0.25 MG0.25 MG PO (14:20)
[2018-12-31] MEDS ORDERED: LOPERAMIDE 2 MG2 M1 PO (14:21)
[2018-12-31] MEDS ORDERED: ENTOCORT EC 3 MG3 MG PO (14:21)
[2018-12-31] MEDS ORDERED: VANCOMYCIN HCL125 MG PO (14:22)
[2018-12-31 17:02] VITALS: BP 124/68
--- NOTE | 2018-12-31 19:08 | HC ---
[facility] [place] [address] CONSULTATION Name: ARBEN COLLINS Room #: 418-P ADM IN M.R.#: [id number] Admission: 12/29/18 ������������������ Attend Phys: Melo Lawrence MD Discharge: ������������������ Date of : 51 Report #: [id number] THIS REPORT FOR: //name// CC: [email or web address] Lawrence DATE OF SERVICE: 12/30/2018 INFECTIOUS DISEASES CONSULTATION REASON FOR CONSULTATION: Evaluate concerning diarrhea, mental status changes. HISTORY OF PRESENT ILLNESS: The patient is a 63-year-old who I initially saw in 03/2018 with diagnosis of PRES and new onset seizure disorder. No other infectious etiologies were identified. Subsequently, she has been doing reasonably well. She has a history of hypertension, bipolar disorder. The history is not totally clear at this point as the patient was unable to give any further details and no family members were present. Apparently, her daughter noted yesterday that she was altered in mental status. Throughout the day, she worsened and she was brought into the Emergency Room. She has been awake, but confused and unable to converse regarding her issues. She has difficulty in word finding. When asked about how she felt, she was unable to give complete details. When specifically asked about pain directed at certain areas of body, she would answer yes to all of them. I do not feel that this is very accurate. She therefore underwent spinal tap, which was remarkable for mild elevation of protein, otherwise negative. CT scan of the brain showed nothing acute. Chest x-ray was clear. CT of the abdomen showed fluid in the colon with no bowel wall thickening. There was some report that she had been on vancomycin for C. difficile colitis in the recent past. She does have diarrhea now. No vomiting. Incontinent of urine. There has been no report of cough or sputum production. There has been no rashes or decubiti. No reported arthritis. She has had a left hscxt-tqb-wryc amputation. PAST MEDICAL HISTORY: Left zmzbj-fwj-zkif amputation, hypertension, anxiety, bipolar disorder, peripheral neuropathy, C. difficile colitis, chronic pain syndrome, seizure disorder PRES syndrome. FAMILY HISTORY: Noncontributory. SOCIAL HISTORY: Nonsmoker, no significant alcohol intake. ALLERGIES: CEFAZOLIN, CLINDAMYCIN, LITHIUM, MORPHINE, SERZONE, NONSTEROIDAL ANTI-INFLAMMATORIES, COMPAZINE, SEROQUEL, ULTRAM, TRAZODONE, VANCOMYCIN. MEDICATIONS: As noted on her OCT, which were reviewed including Zyvox, acyclovir and ceftriaxone. [address] [address] CONSULTATION Name: ARBEN COLLINS Room #: 418-P [facility] IN M.R.#: [id number] Admission: 12/29/18 ������������������ Attend Phys: Melo Lawrence MD Discharge: ������������������ Date of : 51 Report #: [id number] REVIEW OF SYSTEMS: Ten-point review was negative other than what is described above. PHYSICAL EXAMINATION: VITAL SIGNS: Afebrile and hemodynamically stable. Blood pressure is 165/83. She was alert and cooperative. Her maximum temperature is 103.2 degrees rectally on admission. SKIN: Without rash or decubitus. No palpable adenopathy. Moderately obese. HEENT: Eyes without scleral icterus. Pupils were equal, round and reactive to light. Mouth without mucositis. NECK: Supple. LUNGS: Clear to auscultation. HEART: Regular without murmur, gallop or rub. ABDOMEN: Soft with positive bowel sounds. She was tender in the left lower quadrant. There was no guarding or rebound. There was no mass or hepatosplenomegaly. GENITOURINARY: She was incontinent of liquid stool. She was also incontinent of urine. External genitalia unremarkable without lesion or rash. EXTREMITIES: With left fcvji-rbg-vcwj amputation. Right lower extremity without clubbing, cyanosis or edema. She is able to move all extremities. Cranial nerves were intact. She was able to follow directions, although verbally was unable to communicate appropriately. She had basically word salad when tried to discuss her history. LABORATORY STUDIES: C. difficile by PCR was negative. CSF examination, 1 wbc, 2 rbc's, glucose 91, protein 53. CT of the abdomen and pelvis as noted above with bilateral atelectasis and stranding about the kidneys bilaterally. Hemoglobin 14.8; white count 3.1; platelet count 226,000; 72% segs; 23% lymphs. Blood cultures are negative to date. INR 1. Valproic acid level 10. Drug screen negative. CPK 41. CT scan of the head, no acute change. Mild cerebral cortical volume loss. Lactate 1.5. Urinalysis negative. IMPRESSION: A 63-year-old with presentation of fever, change in mental status, diarrhea concerning for Clostridium difficile colitis, although no thickening of the bowel seen on CAT scan likely fits the best. If she was on vancomycin leading up to her hospital stay, C. difficile PCR may be falsely negative. No evidence of pneumonia or meningitis. CT scan shows no evidence of intracranial fluid collections or evidence of sinusitis. RECOMMENDATION: We will continue current antibiotic therapy with enteral vancomycin along with vancomycin, metronidazole and ceftriaxone. We will await final culture results. We will continue to treat for C. difficile colitis. [place] [id number] CONSULTATION Name: ARBEN COLLINS Room #: 418-P ADM IN M.R.#: [id number] Admission: 12/29/18 ������������������ Attend Phys: Melo Lawrence MD Discharge: ������������������ Date of : 51 Report #: [id number] am concerned that she may have had seizure activity leading to her current mental status. This is how she presented over a year ago in a similar fashion. ��������������������������������������������� <ELECTRONICALLY SIGNED> ���������������������������������������� By: Yony Mayberry MD ��������������������������������������������� 12/31/18 [id number] Yony Mayberry MD /nt
[2018-12-31 19:20] VITALS: BP 127/46
--- NOTE | 2018-12-31 20:08 | NUR ---
PATIENT'S FAMILY BROUGHT IN BAG OF MEDICATIONS THIS NURSE AND QUINTEN PHARMACIST TOGETHER WROTE DOWN MEDS. WITH DOSES. HAD MEDS FROM SEVERAL DOCTORS AND SEVERAL PHARMACY'S. INCLUDING DOGS RX FOR XANAX [facility]. VET HAD PRESCRIBED MED. AFTER LOGGING MEDS PHARMIST CALLED DR FLOWERS AND COMPARED MEDS TO PATIENT HOME MEDS. DAUGHTER OF PATIENT PICKED UP MEDS THAT WERE BROUGHT FROM HOME.
--- NOTE | 2019-01-01 01:34 | NUR ---
PT AXO THIS SHIFT.PT WAS CALM,COOPERATIVE AND IN A GOOD MOOD.PT WAS ABLE TO NARRATE THE INCIDENT THAT HAPPENED TO HER EARLIER SHE STATED THAT SHE FELT OKAY NOW.PT USES A BEDPAN FOR ELIMINATION.IVF INFUSING.FALL AND ISOLATION PRECAUTIONS IN PLACE,CALL LIGHT WITHIN REACH.
[2019-01-01 03:49] VITALS: BP 153/62
[2019-01-01 05:32] LABS: MCH 31.1 pg (26.0-34.0); MCHC 32.6 g/dL (28.0-37.0); MCV 95.2 fL (80.0-100.0); RBC 4.51 mil/uL (4.20-5.00); RDW 13.2 % (10.5-14.5)
[2019-01-01 05:41] LABS: CALCIUM 8.8 mg/dL (8.5-10.1); CREATININE 0.9 mg/dL (0.6-1.0); MAGNESIUM 1.9 mg/dL (1.8-2.4); POTASSIUM 3.5 mmol/L (3.5-5.1)
[2019-01-01 08:27] VITALS: BP 156/93
[2019-01-01 15:03] VITALS: BP 148/77
[2019-01-01 19:46] VITALS: BP 16/85; BP 163/85
--- NOTE | 2019-01-01 20:08 | NUR ---
AT 1147 12/31/18 LAB CALLED CRITICAL KCL 2.[address] FLOWERS WHO PUT IN ELECTRO PROTOCOL.
--- NOTE | 2019-01-02 04:18 | NUR ---
PT STILL IN ISOLATION PRECAUTION.CONT TO HAVE LOOSE STOOL.PT REQUESTED FOR AND RECEIVED BENADRYL AND MELATONIN FOR SLEEP,MED ADMINISTRED PER MERCHANDISE DISPLAYER'S ORDER.PT USES A BEDPAN FOR ELIMINATION.PT STATED SHE HAS LACTULOSE INTOLERANCE.PT SLEEPING ON HER BED AT THIS TIME.FALL PRECAUTIONS IN PLACE,CALL LIGHT WITHIN REACH.
[2019-01-02 05:34] VITALS: BP 154/72
[2019-01-02 05:56] LABS: HEMATOCRIT 45.6 % (37.0-47.0); HEMOGLOBIN 15.2 gm/dL (12.0-15.0); MCH 31.7 pg (26.0-34.0); MCHC 33.4 g/dL (28.0-37.0); MCV 94.8 fL (80.0-100.0); RBC 4.81 mil/uL (4.20-5.00); RDW 12.8 % (10.5-14.5); WBC 6.9 thou/uL (4.0-11.0)
[2019-01-02 06:19] LABS: CALCIUM 9.1 mg/dL (8.5-10.1); CREATININE 0.7 mg/dL (0.6-1.0); MAGNESIUM 1.9 mg/dL (1.8-2.4); POTASSIUM 3.3 mmol/L (3.5-5.1)
[2019-01-02 08:25] VITALS: BP 144/96
[2019-01-02 15:10] VITALS: BP 154/94
--- NOTE | 2019-01-02 17:16 | NUR ---
ASSUMED CARE OF PT AT 0700. ASSESSMENT CHARTED. A&O,X4. ANXIETY NOTED. C/O LEFT STUMP PAIN, TYLENOL GIVEN ORDERED. PT REQUESTS DIFFERENT PAIN MEDICINE AND MEDS FOR ANXIETY, PHYSICIAN NOTIFIED. NO NEW ORDERS AT THIS TIME, PT AWARE. NEURO CONSULT AT BEDSIDE THIS AFTERNOON - NEW LAB AND MRI ORDERS FOR TOMORROW PER DR. BAUTISTA. PT IN STABLE CONDITION. STILL HAVING SOME EPISODES OF LOOSE STOOLS. NO OTHER CHANGE IN STATUS NOTED.
[2019-01-02 19:36] VITALS: BP 156/69
--- NOTE | 2019-01-03 01:22 | NUR ---
ASSESSMENT COMPLETED. PT ALERT AND ORIENTED. CALM TONIGHT. USES BEDPAN, AFEBRILE. PT GIVEN BENADRYL FOR SLEEP. NO DIARHOEA SO FAR. WILL CONTINUE WITH POC TILL EOS.
[2019-01-03 03:50] VITALS: BP 156/69
[2019-01-03 04:55] LABS: HEMATOCRIT 48.8 % (37.0-47.0); HEMOGLOBIN 16.3 gm/dL (12.0-15.0); MCH 31.5 pg (26.0-34.0); MCHC 33.3 g/dL (28.0-37.0); MCV 94.6 fL (80.0-100.0); RBC 5.16 mil/uL (4.20-5.00); RDW 13.1 % (10.5-14.5); WBC 7.1 thou/uL (4.0-11.0)
[2019-01-03 05:03] LABS: CALCIUM 9.2 mg/dL (8.5-10.1); CREATININE 0.8 mg/dL (0.6-1.0); MAGNESIUM 2.1 mg/dL (1.8-2.4)
[2019-01-03 05:05] LABS: POTASSIUM 2.9 mmol/L (3.5-5.1)
--- NOTE | 2019-01-03 09:16 | NUR ---
ASSESMENT COMPLETED. VSS. A/O/ANXIOUS. PAIN MANAGED BY MEDS ORDERED. NO NOTED SOA. NO NV. PT ANTICIPATING TO DC HOME TODAY. PT RESTING IN BED WILL CONT. TO MONITOR.
[2019-01-03 16:11] VITALS: BP 156/69
== END 2019-01-03 16:37 | disposition home or self-care (01) | DRG 871 ==
LOC: ER 19:30 → EROBS 23:34 → 4E 23:34
PROVIDERS: Emergency Medicine; Hospitalist; Nurse Practitioner Acute Care; ADMIT Internal Medicine
PROC: 009U3ZX Drainage of Spinal Canal, Percutaneous Approach, Diagnostic (ICD-10-PCS; principal; 2018-12-29)
DX: A41.9 Sepsis, unspecified organism (principal); G93.41 Metabolic encephalopathy; A04.72 Enterocolitis due to Clostridium difficile, not specified as recurrent; I10 Essential (primary) hypertension; F41.9 Anxiety disorder, unspecified; F31.9 Bipolar disorder, unspecified; G40.909 Epilepsy, unspecified, not intractable, without status epilepticus; G89.4 Chronic pain syndrome; K52.831 Collagenous colitis; Z89.612 Acquired absence of left leg above knee; Z88.6 Allergy status to analgesic agent; Z88.1 Allergy status to other antibiotic agents; Z88.8 Allergy status to other drugs, medicaments and biological substances; Z79.891 Long term (current) use of opiate analgesic; Z79.899 Other long term (current) drug therapy
CPT/HCPCS: 10084